=== PATIENT | male | born 1985 | race Caucasian/White ===

== ENCOUNTER → 2016-12-17 | Outpatient (CLI) | payer BC ==
[~2016-12-17] MED LIST: AUGMENTIN 875 M1 TAB PO; DICLOFENAC 50MG50 MG PO; OMEPRAZOLE20 MG PO; SERTRALINE 100100 MG PO; [UNRECOGNIZED DRUG - OTHER] PO
== END ==
LOC: RT 16:13
DX: I70.8 Atherosclerosis of other arteries (principal); I20.9 Angina pectoris, unspecified; I42.9 Cardiomyopathy, unspecified; R06.00 Dyspnea, unspecified; I11.9 Hypertensive heart disease without heart failure; J44.9 Chronic obstructive pulmonary disease, unspecified; E66.9 Obesity, unspecified

== ENCOUNTER → 2017-01-31 | Outpatient (CLI) | payer BC ==
[2017-01-31 09:33] LABS: BUN 11 mg/dL (7-18)
[2017-01-31 09:36] LABS: GFR (ESTIMATED) 111 ML/MIN (>60)
== END ==
LOC: LAB 07:53
PROVIDERS: Internal Medicine Cardiovascular Disease
DX: I25.10 Atherosclerotic heart disease of native coronary artery without angina pectoris (principal); I10 Essential (primary) hypertension; I42.0 Dilated cardiomyopathy; E66.9 Obesity, unspecified